=== PATIENT | female | born 1950 | race Two or more races ===

== ENCOUNTER 2018-10-23 23:29 | Inpatient (IN) | payer MEDICARE, MEDICAID ==
[~2018-10-23] VITALS: Ht 152.4 cm; Wt 63.5 kg
[2018-10-24 00:19] LABS: BASOPHILS # (AUTO) 0.1 /CMM (0.0-0.2); EOSINOPHILS % (AUTO) 7.8 % (0.0-6.0); HEMATOCRIT 39 % (33-45); HEMOGLOBIN 12.9 g/dL (11.5-14.8); LYMPHOCYTES # (AUTO) 2.3 /CMM (0.8-4.8); LYMPHOCYTES % (AUTO) 42.4 % (20.0-44.0); MEAN CORPUSCULAR HGB CONC 33 g/dl (31.0-36.0); MEAN CORPUSCULAR VOLUME 93 fL (82-100); MONOCYTES # (AUTO) 0.4 /CMM (0.1-1.30); MONOCYTES % (AUTO) 7.2 % (2.0-12.0); NEUTROPHILS # (AUTO) 2.2 /CMM (1.8-8.9); NEUTROPHILS % (AUTO) 41.6 % (43.0-81.0); PLATELET COUNT (AUTO) 174 /CMM (150-450); RED BLOOD CELL COUNT(AUTO) 4.21 MIL/uL (4.0-5.2); WHITE BLOOD COUNT (AUTO) 5.3 K/uL (4.3-11.0)
[2018-10-24 00:22] LABS: APPEARANCE,URINE Clear (CLEAR); BILIRUBIN,URINE Negative (NEGATIVE); BLOOD, URINE Negative Ery/uL (NEGATIVE); COLOR,URINE Yellow (YELLOW); KETONES,URINE Negative (NEGATIVE); LEUKOCYTE ESTERASE ,URINE Trace (NEGATIVE); NITRITE, URINE Negative (NEGATIVE); PROTEIN,URINE Negative (NEGATIVE); UGLUCOSE Negative (NEGATIVE); UROBILINOGEN,URINE 0.2 EU/dL (0.2)
[2018-10-24 00:24] LABS: CALCIUM, SERUM 8.4 mg/dL (8.5-10.1); CARBON DIOXIDE 32 mmol/L (21-32); CHLORIDE 103 mmol/L (98-107); CREATININE 0.8 mg/dL (0.6-1.3); GLUCOSE 95 mg/dL (74-106); SODIUM SERUM 139 mmol/L (136-145); UREA NITROGEN, BLOOD 19 mg/dL (7-18)
[2018-10-24 00:30] LABS: ALANINE AMINOTRANSFERASE 21 U/L (12-78); ALBUMIN 3.3 g/dL (3.4-5.0); ALCOHOL, BLOOD < 3 mg/dL (0-0); ALKALINE PHOSPHATASE 67 U/L (46-116); ASPARTATE AMINOTRANSFERASE 19 U/L (15-37); BILIRUBIN,DIRECT 0.1 mg/dL (0.0-0.2); BILIRUBIN,TOTAL 0.4 mg/dL (0.2-1.0); TOTAL PROTEIN, SERUM 6.4 g/dL (6.4-8.2)
[2018-10-24 00:31] LABS: ACETAMINOPHEN 0 ug/ml (10-30)
[2018-10-24 00:49] LABS: BACTERIA,URINE Few /HPF (None Seen); RBC,URINE 0-2 /HPF (0-2); SQUAMOUS EPITHELIAL CELL,UR Few /HPF (None Seen)
[2018-10-24] MEDS ORDERED: BACL10TA PO (05:39)
[2018-10-24] MEDS ORDERED: OXYB5TAB11 PO (05:39)
[2018-10-24] MEDS ORDERED: RISP2TAB23 PO (05:39)
[2018-10-24] MEDS ORDERED: AMAN100T PO (05:39)
[2018-10-24] MEDS ORDERED: DIVA-78 PO (05:39)
[2018-10-24] MEDS ORDERED: FLUO10TA PO (05:39)
[2018-10-24] MEDS ORDERED: MELO-105 PO (05:39)
[2018-10-24] MEDS ORDERED: LORAZEPAM 0.5 MG TABLET PO PRN ×2 (06:30→07:00)
[2018-10-24] MEDS ORDERED: MAG HYDROX/AL HYDROX/SIMETH 30 ML UDC PO PRN (06:30)
[2018-10-24] MEDS ORDERED: BLOOD SUGAR DIAGNOSTIC 1 EACH STRIP IN ONE (06:30)
[2018-10-24] MEDS ORDERED: MAGNESIUM HYDROXIDE 30 ML UDC PO PRN (06:30)
[2018-10-24] MEDS ORDERED: TEMAZEPAM 15 MG CAPSULE PO PRN (06:30)
[2018-10-24] MEDS ORDERED: TEMAZEPAM 7.5 MG CAPSULE PO PRN (07:00)
[2018-10-24 08:00] VITALS: BP 111/65
[2018-10-24] MEDS: Fluoxetine 10 mg capsule PO SCH (08:37)
[2018-10-24] MEDS: DIVALPROEX SODIUM 500 MG TABLET.DR PO SCH ×4 (08:37→17:00)
[2018-10-24] MEDS ORDERED: RISP1TAB27 PO (08:38)
[2018-10-24] MEDS ORDERED: TRAZ-182 PO (08:41)
[2018-10-24] MEDS ORDERED: ACET325T53 PO (08:43)
[2018-10-24] MEDS ORDERED: MAGN2400 PO (08:46)
[2018-10-24] MEDS: risperiDONE 1 MG TABLET PO SCH ×2 (09:26→21:35)
[2018-10-24] MEDS ORDERED: ACETAMINOPHEN 325 MG TABLET PO PRN (11:00)
[2018-10-24 15:00] VITALS: BP 120/60
[2018-10-24] MEDS: ACETAMINOPHEN 325 MG TABLET PO PRN (15:56)
[2018-10-24 16:00] VITALS: BP 120/60
[2018-10-24] MEDS: AMANTADINE HCL 100 MG CAPSULE PO SCH (17:00)
[2018-10-24] MEDS: OXYBUTYNIN CHLORIDE 5 MG TABLET PO SCH (17:00)
[2018-10-25 08:00] VITALS: BP 128/65
[2018-10-25] MEDS: DIVALPROEX SODIUM 500 MG TABLET.DR PO SCH ×3 (09:00→16:47)
[2018-10-25] MEDS: MELOXICAM 7.5 MG TABLET PO SCH (09:00)
[2018-10-25] MEDS: Fluoxetine 10 mg capsule PO SCH (09:00)
[2018-10-25] MEDS: OXYBUTYNIN CHLORIDE 5 MG TABLET PO SCH ×2 (09:00→16:48)
[2018-10-25] MEDS: AMANTADINE HCL 100 MG CAPSULE PO SCH ×2 (09:00→16:50)
[2018-10-25] MEDS: risperiDONE 1 MG TABLET PO SCH ×2 (09:00→21:41)
[2018-10-25] MEDS: NICOTINE PATCH (14MG) 14 MG PATCH.TD24 TD SCH (10:30)
[2018-10-25 16:06] VITALS: BP 110/71
[2018-10-25 20:00] VITALS: BP 123/74
[2018-10-26 08:00] VITALS: BP 120/79
[2018-10-26] MEDS: MELOXICAM 7.5 MG TABLET PO SCH (08:07)
[2018-10-26] MEDS: DIVALPROEX SODIUM 500 MG TABLET.DR PO SCH ×3 (08:07→17:00)
[2018-10-26] MEDS: OXYBUTYNIN CHLORIDE 5 MG TABLET PO SCH ×2 (08:07→17:00)
[2018-10-26] MEDS: Fluoxetine 10 mg capsule PO SCH (08:07)
[2018-10-26] MEDS: AMANTADINE HCL 100 MG CAPSULE PO SCH ×2 (08:08→17:00)
[2018-10-26] MEDS: NICOTINE PATCH (14MG) 14 MG PATCH.TD24 TD SCH (08:08)
[2018-10-26] MEDS: risperiDONE 1 MG TABLET PO SCH ×2 (08:08→21:05)
[2018-10-26 15:59] VITALS: BP 142/70
[2018-10-26] MEDS: ACETAMINOPHEN 325 MG TABLET PO PRN (18:10)
[2018-10-26 20:04] VITALS: BP 125/70
[2018-10-27 08:00] VITALS: BP 116/93
[2018-10-27] MEDS: NICOTINE PATCH (14MG) 14 MG PATCH.TD24 TD SCH (09:00)
[2018-10-27] MEDS: risperiDONE 1 MG TABLET PO SCH ×2 (09:00→21:27)
[2018-10-27] MEDS: Fluoxetine 10 mg capsule PO SCH (09:00)
[2018-10-27] MEDS: MELOXICAM 7.5 MG TABLET PO SCH (09:00)
[2018-10-27] MEDS: AMANTADINE HCL 100 MG CAPSULE PO SCH ×2 (09:00→17:18)
[2018-10-27] MEDS: DIVALPROEX SODIUM 500 MG TABLET.DR PO SCH ×3 (09:00→17:16)
[2018-10-27] MEDS: OXYBUTYNIN CHLORIDE 5 MG TABLET PO SCH ×2 (09:00→17:16)
[2018-10-27] MEDS: HALOPERIDOL 5 MG TABLET PO SCH ×2 (14:52→21:27)
[2018-10-27 16:00] VITALS: BP 126/75
[2018-10-27 19:39] VITALS: BP 96/59
[2018-10-27 22:00] VITALS: BP 130/45
[2018-10-28 07:37] LABS: CALCIUM, SERUM 8.7 mg/dL (8.5-10.1); CREATININE 0.7 mg/dL (0.6-1.3)
[2018-10-28 08:00] VITALS: BP 100/64
[2018-10-28] MEDS: AMANTADINE HCL 100 MG CAPSULE PO SCH ×2 (08:46→16:10)
[2018-10-28] MEDS: OXYBUTYNIN CHLORIDE 5 MG TABLET PO SCH ×2 (08:46→16:10)
[2018-10-28] MEDS: DIVALPROEX SODIUM 500 MG TABLET.DR PO SCH ×3 (08:46→16:10)
[2018-10-28] MEDS: risperiDONE 1 MG TABLET PO SCH (08:46)
[2018-10-28] MEDS: Fluoxetine 10 mg capsule PO SCH (08:46)
[2018-10-28] MEDS: HALOPERIDOL 5 MG TABLET PO SCH ×2 (08:46→21:15)
[2018-10-28] MEDS: MELOXICAM 7.5 MG TABLET PO SCH (08:46)
[2018-10-28] MEDS: NICOTINE PATCH (14MG) 14 MG PATCH.TD24 TD SCH (08:49)
[2018-10-28] MEDS ORDERED: HALOPERIDOL DECANOATE IM 100 MG/ML AMPUL IM ONE (10:00)
[2018-10-28 16:00] VITALS: BP 117/71
[2018-10-29 08:00] VITALS: BP 106/64
[2018-10-29] MEDS: HALOPERIDOL 5 MG TABLET PO SCH ×2 (08:24→21:03)
[2018-10-29] MEDS: AMANTADINE HCL 100 MG CAPSULE PO SCH ×2 (08:24→17:17)
[2018-10-29] MEDS: Fluoxetine 10 mg capsule PO SCH (08:24)
[2018-10-29] MEDS: DIVALPROEX SODIUM 500 MG TABLET.DR PO SCH ×3 (08:25→17:17)
[2018-10-29] MEDS: MELOXICAM 7.5 MG TABLET PO SCH (08:25)
[2018-10-29] MEDS: OXYBUTYNIN CHLORIDE 5 MG TABLET PO SCH ×2 (08:25→17:17)
[2018-10-29] MEDS: NICOTINE PATCH (14MG) 14 MG PATCH.TD24 TD SCH (10:33)
[2018-10-29 16:00] VITALS: BP 106/76
[2018-10-30 08:00] VITALS: BP 123/68
[2018-10-30] MEDS ORDERED: HALOPERIDOL DECANOATE IM 100 MG/ML AMPUL IM ONE (08:00)
[2018-10-30] MEDS: AMANTADINE HCL 100 MG CAPSULE PO SCH ×2 (08:26→16:18)
[2018-10-30] MEDS: HALOPERIDOL 5 MG TABLET PO SCH ×2 (08:26→22:11)
[2018-10-30] MEDS: OXYBUTYNIN CHLORIDE 5 MG TABLET PO SCH ×2 (08:26→16:18)
[2018-10-30] MEDS: MELOXICAM 7.5 MG TABLET PO SCH (08:26)
[2018-10-30] MEDS: DIVALPROEX SODIUM 500 MG TABLET.DR PO SCH ×3 (08:26→16:18)
[2018-10-30] MEDS: Fluoxetine 10 mg capsule PO SCH (08:26)
[2018-10-30] MEDS: NICOTINE PATCH (14MG) 14 MG PATCH.TD24 TD SCH (09:10)
[2018-10-30 20:32] VITALS: BP 109/66
[2018-10-31 08:00] VITALS: BP 114/63
[2018-10-31] MEDS: OXYBUTYNIN CHLORIDE 5 MG TABLET PO SCH ×2 (08:32→16:31)
[2018-10-31] MEDS: DIVALPROEX SODIUM 500 MG TABLET.DR PO SCH ×3 (08:32→16:30)
[2018-10-31] MEDS: NICOTINE PATCH (14MG) 14 MG PATCH.TD24 TD SCH (08:32)
[2018-10-31] MEDS: AMANTADINE HCL 100 MG CAPSULE PO SCH ×2 (08:32→16:30)
[2018-10-31] MEDS: HALOPERIDOL 5 MG TABLET PO SCH ×2 (08:32→21:41)
[2018-10-31] MEDS: MELOXICAM 7.5 MG TABLET PO SCH (08:32)
[2018-10-31] MEDS: Fluoxetine 10 mg capsule PO SCH (08:33)
[2018-10-31 16:00] VITALS: BP 135/64
[2018-11-01 08:00] VITALS: BP 112/74
[2018-11-01] MEDS: NICOTINE PATCH (14MG) 14 MG PATCH.TD24 TD SCH (08:29)
[2018-11-01] MEDS: OXYBUTYNIN CHLORIDE 5 MG TABLET PO SCH ×2 (08:30→16:08)
[2018-11-01] MEDS: AMANTADINE HCL 100 MG CAPSULE PO SCH ×2 (08:30→16:08)
[2018-11-01] MEDS: MELOXICAM 7.5 MG TABLET PO SCH (08:30)
[2018-11-01] MEDS: HALOPERIDOL 5 MG TABLET PO SCH ×2 (08:30→21:50)
[2018-11-01] MEDS: Fluoxetine 10 mg capsule PO SCH (08:30)
[2018-11-01] MEDS: DIVALPROEX SODIUM 500 MG TABLET.DR PO SCH ×4 (08:30→16:08)
[2018-11-01 16:00] VITALS: BP 108/59
[2018-11-02] MEDS: MELOXICAM 7.5 MG TABLET PO SCH (08:57)
[2018-11-02] MEDS: Fluoxetine 10 mg capsule PO SCH (08:57)
[2018-11-02] MEDS: HALOPERIDOL 5 MG TABLET PO SCH ×2 (08:58→21:10)
[2018-11-02] MEDS: DIVALPROEX SODIUM 500 MG TABLET.DR PO SCH ×3 (08:58→19:02)
[2018-11-02] MEDS: OXYBUTYNIN CHLORIDE 5 MG TABLET PO SCH ×3 (08:58→16:44)
[2018-11-02] MEDS: NICOTINE PATCH (14MG) 14 MG PATCH.TD24 TD SCH (08:59)
[2018-11-02] MEDS: AMANTADINE HCL 100 MG CAPSULE PO SCH ×2 (09:01→19:02)
[2018-11-02 16:00] VITALS: BP 109/58
[2018-11-02 20:00] VITALS: BP 91/55
[2018-11-03 08:00] VITALS: BP 104/62
[2018-11-03] MEDS: HALOPERIDOL 5 MG TABLET PO SCH (09:39)
[2018-11-03] MEDS: NICOTINE PATCH (14MG) 14 MG PATCH.TD24 TD SCH (09:39)
[2018-11-03] MEDS: MELOXICAM 7.5 MG TABLET PO SCH (09:39)
[2018-11-03] MEDS: Fluoxetine 10 mg capsule PO SCH (09:39)
[2018-11-03] MEDS: DIVALPROEX SODIUM 500 MG TABLET.DR PO SCH ×2 (09:39→12:53)
[2018-11-03] MEDS: OXYBUTYNIN CHLORIDE 5 MG TABLET PO SCH (09:39)
[2018-11-03] MEDS: AMANTADINE HCL 100 MG CAPSULE PO SCH (09:39)
[2018-12-01] MEDS ORDERED: HALOPERIDOL DECANOATE IM 100 MG/ML AMPUL IM SCH (09:00)
== END 2018-11-03 13:40 | DRG 885 ==
LOC: ER 23:33 → GPS 10-24 05:23
PROVIDERS: ADMIT Psychiatry & Neurology Psychiatry; ATTEND Family Medicine
DX: F25.0 Schizoaffective disorder, bipolar type (principal); G20 Parkinson's disease; Z91.14 Patient's other noncompliance with medication regimen; M19.90 Unspecified osteoarthritis, unspecified site; F32.9 Major depressive disorder, single episode, unspecified; F17.210 Nicotine dependence, cigarettes, uncomplicated; E88.09 Other disorders of plasma-protein metabolism, not elsewhere classified; R79.89 Other specified abnormal findings of blood chemistry
CPT/HCPCS: 36415; 80048-TC; 80076-TC; 80164-TC; 80305; 81000-TC; 85025-TC; 87081-TC; G0480; J1631